=== PATIENT | male | born 1965 | race Caucasian/White ===

== ENCOUNTER 2016-06-25 12:06 | Emergency (ER) | payer SELFPAY ==
[2016-06-25 12:25] VITALS: BP 182/95
--- NOTE | 2016-06-25 15:23 | Emergency Department Report ---
Chief Complaint: Recheck/Abnormal Lab/Rx Stated Complaint: RT FOOT INJURY Time Seen by Provider: 06/25/16 15:07 - HPI History of Present Illness: Patient presents today for eval of left great toe amputation. States he'd like to know whether he could start wearing shoes again. States toe was amputated 2 months ago in [place] due to bad toe. Reports some phantom sensation. Denies pain. Denies swelling, drainage, redness, fever, chills. States has HTN but not on any BP meds. Denies chest pain or discomfort, headaches, change or blurred vision, dizziness , weakness, tingling, numbness. States in good health overall. - ROS Review of Systems: Other systems reviewed and negative. - Exam Vital Signs: Vital Signs 06/25/16 12:08 Temperature 97.4 F L Pulse Rate 81 Respiratory 16 Rate Blood Pressure 182/95 O2 Sat by Pulse 98 Oximetry Physical Exam: General: NAD. Heart: RRR. Lungs: Equal sounds b/l. Extremities: Left great toe amputation. Appears to have healed nicely. No erythema, edema, heat, drainage. + pedal and posterior tibial pulses. MSE screening note: Focused history and physical exam performed. Due to findings the following was ordered: ED Medical Decision Making - Medical Decision Making Patient being referred to [facility] and ortho for his BP and toe follow up. He is instructed he could wear shoes if he feels comfortable with doing so. S/sx of infection discussed. He verbalized understanding and is agreeable to plan. ED Disposition for MSE Clinical Impression: Amputee, great toe Qualifiers: Laterality: left Qualified Code(s): Z89.412 - Acquired absence of left great toe Disposition: MEDICAL SCREENING EXAM-LEFT Is pt being admited?: No Does the pt Need Aspirin: No Condition: Stable Additional Instructions: Follow up with ortho and PCP for toe. Follow up immediately with your PCP for elevated BP as not doing so in a timely manner could result in heart attack or stroke. Referrals: [facility] [Outside] - CHARLES GARVIN MD [Staff Physician] - RICARDA
== END 2016-06-25 15:26 | disposition left against medical advice (07) ==
LOC: ED 12:06
DX: Z89.412 Acquired absence of left great toe (principal); Z53.21 Procedure and treatment not carried out due to patient leaving prior to being seen by health care provider